=== PATIENT | male | born 1985 | race Hispanic/Latino ===

== ENCOUNTER 2022-12-11 10:29 | Emergency (ER) | payer SELFPAY ==
[2022-12-11] MEDS ORDERED: Ketorolac Tromethamine 30 MG/ML VIAL ONE (12:24)
== END 2022-12-11 13:45 | disposition home or self-care (01) ==
LOC: CSHERS 10:29
DX: M94.0 Chondrocostal junction syndrome [Tietze] (principal); Z87.891 Personal history of nicotine dependence
CPT/HCPCS: 71045; 93005; 96374; J1885